=== PATIENT | male | born 1965 | race Caucasian/White ===

== ENCOUNTER 2017-02-08 05:40 | Day surgery (SDC) | payer BC ==
[2017-02-04 16:20] LABS: BASOPHILS 0.2 %; BASOPHILS ABSOLUTE 0.03 10/3/uL (0.0-0.16); EOSINOPHILS 0.2 %; EOSINOPHILS ABSOLUTE 0.03 10/3/uL (0.0-0.53); HEMATOCRIT 44.7 % (40.0-51.0); HEMOGLOBIN 15.7 g/dL (13.6-17.8); IMMATURE GRANULOCYTES 0.2 %; IMMATURE GRANULOCYTES ABSOLUTE 0.02 10/3/uL (0.0-0.11); LYMPHOCYTES 17.6 %; LYMPHOCYTES ABSOLUTE 2.14 10/3/uL (0.67-4.30); MEAN CORPUS HGB CONC 35.1 g/dL (32.0-36.0); MEAN CORPUSCULAR HEMOGLOB 31.4 pg (26.0-34.0); MEAN CORPUSCULAR VOLUME 89.4 fL (80-100); MONOCYTES 7.8 %; MONOCYTES ABSOLUTE 0.95 10/3/uL (0.21-1.20); NEUTROPHILS ABSOLUTE 9.02 10/3/uL (2.02-8.40); PLATELET COUNT 159 10/3/uL (150-400); WHITE BLOOD CELLS 12.2 10/3/uL (4.5-10.5)
[2017-02-04 16:23] LABS: MANUAL DIFF NO %
[2017-02-04 16:31] LABS: CHLORIDE, SERUM 100 MMOL/L (96-112); CO2 (CARBON DIOXIDE) 33 MMOL/L (24-34); CREATININE 1.44 MG/DL (0.70-1.30); GFR AFRICAN AMERICAN 66 ML/MIN (>=60); GFR NON AFRICAN AMERICAN 57 ML/MIN (>=60); GLUCOSE, SERUM 100 MG/DL (60-99); POTASSIUM, SERUM 4.6 MMOL/L (3.5-5.3); SODIUM, SERUM 141 MMOL/L (135-148)
[2017-02-04 16:32] LABS: BUN (BLOOD UREA NITROGEN) 34 MG/DL (6-23)
--- NOTE | ~2017-02-08 | OP ---
Record Of Operation [facility] [address] [place]. [address] NAME: JIMMIE FRANCOIS : 69 STATUS : [facility]#: [id number] AGE: 51 ADM/REG DATE : 02/08/17 MR#: [id number] REPORT SERV DATE: 02/08/17 DICTATED BY: CATRACHO DUVALL DATE: 02/08/17 REPORT STATUS : Draft TRANSCRIBED BY: MODL DATE: 02/08/17 DATE OF PROCEDURE: 02/08/2017 PREOPERATIVE DIAGNOSIS: Right ureteral stone. POSTOPERATIVE DIAGNOSIS: Right ureteral stone. PROCEDURE PERFORMED: Right ESWL (ureteral stone, initial treatment). SURGEON: Catracho Duvall M.D. ANESTHESIA: General. COMPLICATIONS: None. DRAINS: None. INDICATION: 5 mm symptomatic right ureteral stone. Stones in the mid ureter last week appears to have migrated to the distal ureter on KUB today. TECHNIQUE: Informed consent was obtained. He was brought to the operating room. Monitored anesthesia care was administered. The 5 mm stone was visualized with biplanar fluoroscopy in the expected course of the right distal ureter. A total of 3000 shocks were administered at a maximum power level of 4. First 500 shocks were administered at 60 shocks per minute. The remaining shocks were administered at 90 shocks per minute. There appeared to be some fragmentation of the stone. The Lithotripter used was the [employer]ier Compact Delta II shockwave Lithotripter. He will follow up in 2 weeks with a KUB. Prescription for 21 Lortab and seven days of tamsulosin were given. He received Levaquin preop. PROSPER/LANETTE Catracho Duvall M.D. / [id number] CC: Ofelia Goldstein
[~2017-02-08 05:40] MED LIST: COZ25 PO; HYALURONIC ACID PO; IBU-200200 MG PO; KRILLOIL PO; MICROZIDE PO; MOBIC15 MG PO; MULTIVIT/MIN PO; NIACIN 500 PO; NORCO1 TA1 PO; PROBIOTIC 10 PO; SUPER B COMP PO; TYLENOL 16160 MG/51; VITC500 PO; ZESTRIL5 MG PO
[2017-02-08 06:19] LABS: ASCORBIC ACID (UR NOT ORDER) NEG (NEG); BILIRUBIN, URINE NEGATIVE (NEG); KETONE, URINE NEGATIVE (NEG); LEUKOCYTE ESTERASE(NOT OR NEG (NEG); WBC (NOT ORDERED) (RFLEX) 2 (0-5)
== END 2017-02-08 10:01 | disposition home or self-care (01) ==
LOC: SDC 05:40
PROVIDERS: Urology
PROC: 0TF6XZZ Fragmentation in Right Ureter, External Approach (ICD-10-PCS; principal; 2017-02-08 08:00)
DX: N20.1 Calculus of ureter (principal); I10 Essential (primary) hypertension; M19.90 Unspecified osteoarthritis, unspecified site; Z98.52 Vasectomy status; Z87.442 Personal history of urinary calculi; Z98.890 Other specified postprocedural states
CPT/HCPCS: 50590; 74000; 80048; 81001; 85025; 93005; J2250